=== PATIENT | male | born 1945 | race Caucasian/White ===

== ENCOUNTER → 2017-11-04 | Outpatient (CLI) | payer MEDICARE, OTHER ==
[~2017-11-04] MED LIST: ALIGN4 MG PO; BAYER CHEWABLE81 MG PO; CELEBREX 200 M200 MG PO; GLUCOPHAGE500 MG PO; HYDROCODON-ACE1 EACH PO; IMITREX100 MG PO; LISINOPRIL20 MG PO; PROZAC 20 MG20 MG PO; SIMVASTATIN20 MG PO
--- NOTE | 2017-11-05 15:36 | TST ---
[facility] [address] [place] [address] TREADMILL STRESS TEST Name: ISMA MENESES Room: [facility]#: [id number] Admission: 11/04/17 Attend Phys: Sohan Naranjo Discharge: Date of : 47 Date of Service: 11/04/17 1523 Report #: [id number] THIS REPORT FOR: //name// CC: Lamont Castro DATE OF SERVICE: 11/04/2017 Resting 12-lead electrocardiogram demonstrates a sinus rhythm and is within normal limits. The patient exercised for 11 minutes and 59 seconds, stopping because of fatigue, but denying chest discomfort. The patient achieved a peak heart rate of 129, 85% of the age predicted maximum. Blood pressure was 132/82 initially, increasing to 203/84 at peak exercise and falling to 134/81 during the post-exercise phase. There were no ischemic ST-T alterations noted. Minor nonspecific ST-T changes were observed. There were no significant supraventricular or ventricular arrhythmias. A rare isolated PVC was noted. IMPRESSION: 1. Negative treadmill exercise test for provocation of ischemic ST-T alterations. 2. No chest pain provoked by exertion. 3. Blunted peak heart rate response (mildly). 4. Appropriate increase in systolic blood pressure provoked by exertion. 5. No significant arrhythmias noted. 6. Excellent level of fitness for age. <ELECTRONICALLY SIGNED> By: Arnaldo Noyola MD, [facility] 11/05/17 1536 1523 [id number] Arnaldo Noyola MD, [facility] /nt
== END ==
LOC: M.CRD 11-03 11:00
DX: I20.8 Other forms of angina pectoris (principal)

== ENCOUNTER → 2020-03-26 | Outpatient (CLI) | payer MEDICARE, OTHER | LOC: M.MRI 12:46 | DX: M51.37 Other intervertebral disc degeneration, lumbosacral region (principal); M47.816 Spondylosis without myelopathy or radiculopathy, lumbar region; M48.061 Spinal stenosis, lumbar region without neurogenic claudication; M25.551 Pain in right hip ==

== ENCOUNTER → 2020-04-01 | Outpatient (CLI) | payer MEDICARE, OTHER ==
[~2020-04-01] MED LIST changes: +ASA81BEC PO; +CARDIZEM SR 60M60 MG PO; +FLOMAX0.4 MG PO; +HYDROCODONE-AP1 EACH PO; +ROSUVASTATIN CA10 MG PO; +TRAZODONE HCL50 MG PO; +XANAX1 MG PO
== END ==
LOC: M.PC 09:12
PROVIDERS: ATTEND Physical Medicine & Rehabilitation
DX: M51.16 Intervertebral disc disorders with radiculopathy, lumbar region (principal); M47.26 Other spondylosis with radiculopathy, lumbar region; M48.061 Spinal stenosis, lumbar region without neurogenic claudication; M79.605 Pain in left leg; Z88.8 Allergy status to other drugs, medicaments and biological substances; Z79.899 Other long term (current) drug therapy

== ENCOUNTER → 2020-04-08 | Outpatient (CLI) | payer MEDICARE, OTHER | END | disposition home or self-care (01) | LOC: M.PC 09:23 | PROVIDERS: ATTEND Physical Medicine & Rehabilitation | DX: M51.16 Intervertebral disc disorders with radiculopathy, lumbar region (principal); G89.29 Other chronic pain; M47.26 Other spondylosis with radiculopathy, lumbar region; I10 Essential (primary) hypertension; E11.9 Type 2 diabetes mellitus without complications; F32.9 Major depressive disorder, single episode, unspecified; M19.90 Unspecified osteoarthritis, unspecified site; N40.0 Benign prostatic hyperplasia without lower urinary tract symptoms; Z98.890 Other specified postprocedural states; Z79.899 Other long term (current) drug therapy ==

== ENCOUNTER → 2020-04-22 | Outpatient (CLI) | payer MEDICARE, OTHER | END | disposition home or self-care (01) | LOC: M.PC 09:36 | PROVIDERS: ATTEND Physical Medicine & Rehabilitation | DX: M51.16 Intervertebral disc disorders with radiculopathy, lumbar region (principal); M48.061 Spinal stenosis, lumbar region without neurogenic claudication; M47.26 Other spondylosis with radiculopathy, lumbar region; M79.605 Pain in left leg; G89.29 Other chronic pain; I10 Essential (primary) hypertension; E11.9 Type 2 diabetes mellitus without complications; N40.0 Benign prostatic hyperplasia without lower urinary tract symptoms; M19.90 Unspecified osteoarthritis, unspecified site; F32.9 Major depressive disorder, single episode, unspecified; G47.00 Insomnia, unspecified; Z98.890 Other specified postprocedural states; Z79.899 Other long term (current) drug therapy ==

== ENCOUNTER → 2020-06-13 | Outpatient (CLI) | payer MEDICARE, OTHER ==
[2020-06-13 09:36] LABS: HEMATOCRIT 40.8 % (42.0-52.0); HEMOGLOBIN 13.4 gm/dL (14.0-18.0); MCH 30.4 pg (26.0-34.0); MCHC 32.9 g/dL (28.0-37.0); MCV 92.5 fL (80.0-100.0); RBC 4.41 mil/uL (4.50-6.00); RDW-CV 15.1 % (10.5-14.5); WBC 6.8 thou/uL (4.0-11.0)
[2020-06-13 09:46] LABS: CALCIUM 9.3 mg/dL (8.5-10.1); POTASSIUM 4.1 mmol/L (3.5-5.1)
== END ==
LOC: M.LAB 09:16 → M.CT 11:00
DX: C18.9 Malignant neoplasm of colon, unspecified (principal); N20.0 Calculus of kidney; R19.5 Other fecal abnormalities; K57.33 Diverticulitis of large intestine without perforation or abscess with bleeding; N40.1 Benign prostatic hyperplasia with lower urinary tract symptoms

== ENCOUNTER 2020-08-06 08:28 | Emergency (ER) | payer MEDICARE, OTHER ==
[~2020-08-06] VITALS: Ht 180.3 cm; Wt 87.1 kg
[2020-08-06 08:43] LABS: URINE BILIRUBIN NEGATIVE (Negative); URINE BLOOD NEGATIVE (Negative); URINE CLARITY CLEAR; URINE COLOR YELLOW; URINE GLUCOSE-RANDOM NEGATIVE (Negative); URINE KETONES NEGATIVE (Negative); URINE LEUKOCYTES NEGATIVE (Negative); URINE NITRITE NEGATIVE (Negative); URINE PROTEIN NEGATIVE (Negative); URINE UROBILINOGEN 0.2 E.U./dl (0.2-1.0)
[2020-08-06 08:56] LABS: ABSOLUTE BASOPHILS 0.1 thou/uL (0.0-0.2); ABSOLUTE EOSINOPHILS 0.2 thou/uL (0.0-0.7); ABSOLUTE LYMPHOCYTES 1.6 thou/uL (0.8-5.3); ABSOLUTE NEUTROPHILS 6.9 thou/uL (1.6-8.1); BASOPHILS 0.8 %; EOSINOPHILS 2.1 %; HEMATOCRIT 40.7 % (42.0-52.0); HEMOGLOBIN 13.6 gm/dL (14.0-18.0); LYMPHOCYTES 16.1 %; MCH 30.8 pg (26.0-34.0); MCHC 33.4 g/dL (28.0-37.0); MCV 92.3 fL (80.0-100.0); MONOCYTES 10.3 %; MPV 7.9 fl. (7.2-11.1); NUCLEATED RBCS 0 /100WBC; PLATELET COUNT* 238 thou/uL (150-400); POLYS 70.7 %; RBC 4.41 mil/uL (4.50-6.00); RDW-CV 14.4 % (10.5-14.5); WBC 9.8 thou/uL (4.0-11.0)
[2020-08-06 09:05] LABS: CALCIUM 8.5 mg/dL (8.5-10.1); POTASSIUM 4.3 mmol/L (3.5-5.1)
[2020-08-06 09:09] LABS: ALBUMIN 3.7 g/dL (3.4-5.0); TOTAL BILIRUBIN 0.7 mg/dL (<0.1-1.0)
[2020-08-06] MEDS ORDERED: CIPROFLOXACIN500 M1 PO (10:19)
[2020-08-06] MEDS ORDERED: FLAGYL500 M1 PO (10:19)
[2020-08-06 10:28] VITALS: BP 108/63
--- NOTE | 2020-08-06 14:56 | EKG ---
[place] [address] ELECTROCARDIOGRAM REPORT Name: ISMA MENESES Room: [facility]#: [id number] Admission: 08/06/20 Attend Phys: Discharge: 08/06/20 Date of : 47 Date of Service: 08/06/20907 Report #: [id number] THIS REPORT FOR: //name// [facility] ED Test Date: 2020-08-06 Test Time: 09:08:41 Pat Name: ISMA MENESES Department: Room: Gender: Office Employee: : 1945 Requested By: Lucio Escobar Order Number: [id number] MD: Mario Bishop Measurements Intervals [place] Rate: 55 P: 43 SD: 284 QRS: 55 QRSD: 101 T: 12 QT: 443 QTc: 424 Interpretive Statements Sinus bradycardia Prolonged SD interval Abnormal R-wave progression, early transition Compared to ECG 12/02/2015 11:37:26 No significant changes Electronically Signed On 08-06-2020 14:56:11 CDT by Mario Bishop [email or web address] <ELECTRONICALLY SIGNED> By: Mario Bishop MD, [facility] 08/06/20 1456 [id number] [id number] Mario Bishop MD, [facility] /EPI
== END 2020-08-06 10:28 | disposition home or self-care (01) ==
LOC: M.ERS 08:28
PROVIDERS: Emergency Medicine
DX: K57.32 Diverticulitis of large intestine without perforation or abscess without bleeding (principal); Z87.442 Personal history of urinary calculi; Z85.038 Personal history of other malignant neoplasm of large intestine; Z79.899 Other long term (current) drug therapy; Z79.82 Long term (current) use of aspirin